=== PATIENT | male | born 1950 | race American Indian/Alaskan Native ===

== ENCOUNTER 2019-03-12 11:29 | Day surgery (SDC) | payer OTHER ==
[~2019-03-12 11:29] MED LIST: NACL 0.9% 1000 ML 1,000 ML IV SCH
--- NOTE | 2019-03-12 13:13 | Anesthesia Day of Surgery ---
Anesthesia Day of Surgery - Day of Surgery Patient Examined: Yes Patient H&P Reviewed: Yes Patient is NPO: Yes Beta Blockers: No
--- NOTE | 2019-03-12 13:15 | Anesthesia Consultation ---
Anesthesia Consult and Med Hx Date of service: 03/12/19 - Airway Anesthetic Teeth Evaluation: Good ROM Head & Neck: Adequate Mental/Hyoid Distance: Adequate Mallampati Class: Class III Intubation Access Assessment: Good - Pulmonary Exam CTA: Yes - Cardiac Exam Cardiac Exam: No Murmur - Pre-Operative Health Status ASA Pre-Surgery Classification: ASA3 Proposed Anesthetic Plan: MAC - Pulmonary Hx Sleep Apnea: Yes - Additional Comments Anesthesia Medical History Comments: High chol, Arthritis, HIV and HEP B
[2019-03-12] MEDS ORDERED: WATER FOR IRRIG STERILE IR ONE (14:53)
[2019-03-12] MEDS ORDERED: DIPRIVAN 10 MG/ML IV ONE ×3 (14:55→15:12)
--- NOTE | 2019-03-12 15:42 | Operative Report ---
Operative Report Operative Report: Date of procedure: 03/12/2019 Procedure: Colonoscopy with Ablation, Multiple hot biopsy polypectomies. Attending physician: Rosalio Rahman MD Condenser Winder: Rosalio Rahman MD Indication: Patient is a 68-year-old male who presents for screening colonoscopy. A colonoscopy service to evaluate patient for colorectal cancer screening.. Consent: Informed consent was obtained after advising the patient and family regarding nature of this procedure, its indications, potential benefits as well as possible complications including but not limited to bleeding perforation and adverse reaction to medication, infection as well as other cardiopulmonary complications. An informed written and verbal consent was then obtained after due opportunity was provided for questions and answers. Monitoring: Patient was monitored continuously with pulse oximetry and electrocardiographic recordings as well as blood pressure recordings. Vital signs remained stable throughout this procedure with no untoward events. Preoperative assessment: Patient was assessed immediately prior to this procedure for capacity to tolerate monitored anesthesia care and moderate sedation as well as general anesthesia. Patient's ASA classification is 2, Mallampati class is 2, Hyomental distance is 3. Instrument: Comfywaren video colonoscope Medications: Propofol given intravenously in divided doses. For details please refer to anesthesia records. Description of procedure: Patient was placed in the left lateral decubitus position after achieving sedation, a digital rectal examination was performed following which the colonoscope was introduced into the anal verge and advanced to the cecum which was identified by the ileocecal valve, the appendiceal orifice, as well as by the cecal strap and direct transillumination. The colonoscope was subsequently withdrawn with careful inspection of all mucosal surfaces. Patient tolerated this procedure well and was subsequently taken to the recovery room. The following findings were noted. Findings: The colon was moderately tortuous. Patient had multiple diminutive sigmoid colon polyps measuring approximately 3-4 mm, which were ablated. He also had two 4-5 mm polyps and also an 8 mm sessile polyp in the sigmoid colon which were removed by hot biopsy polypectomy and retrieved. Patient also had a 5 mm rectal polyp which was removed by hot biopsy polypectomy and retrieved and also a 3-4 mm rectal polyp which was ablated. There were scattered diverticula seen in the sigmoid and descending colon. On the retroflex view at the anal verge, patient had prominent large internal hemorrhoids. Patient had substantial retained thick liquid stool in sections of the colon. Impression: Multiple Sigmoid colon polyps status post hot biopsy polypectomy and polyp ablation Rectal polyp status post ablation Rectal polyp status post hot biopsy polypectomy Retained stool Diverticulosis of the colon Prominent Internal hemorrhoids. Plan: Follow pathology report. Repeat colonoscopy in 6-12 months due to retained stool and relatively poor colonoscopic preparation and presence of multiple polyps For now will encourage high-fiber diet.
--- NOTE | 2019-03-12 15:43 | Discharge Summary ---
Short Stay Discharge Plan Activity: advance as tolerated Weight Bearing Status: Weight Bear as Tolerated Diet: regular Follow up with: [facility] [Primary Care Provider] - 7 Days
[2019-03-12 16:58] VITALS: BP 114/72
== END 2019-03-12 16:26 | disposition home or self-care (01) ==
LOC: GIO 11:29
PROVIDERS: ATTEND Internal Medicine Gastroenterology
DX: Z12.11 Encounter for screening for malignant neoplasm of colon (principal); K63.5 Polyp of colon; K62.1 Rectal polyp; K57.30 Diverticulosis of large intestine without perforation or abscess without bleeding; K64.8 Other hemorrhoids; G47.33 Obstructive sleep apnea (adult) (pediatric); M19.90 Unspecified osteoarthritis, unspecified site; Z98.890 Other specified postprocedural states; Z79.899 Other long term (current) drug therapy; Z98.49 Cataract extraction status, unspecified eye
CPT/HCPCS: 45384; 45388; 88305; J2704; J7030